=== PATIENT | female | born 1995 | race Hispanic/Latino ===

== ENCOUNTER 2017-04-11 17:13 | Emergency (ER) | payer MEDICAID ==
[2017-04-11 17:13] VITALS: BMI 29.9
[2017-04-11] MEDS ORDERED: RABIES VACCINE 2.5 Units PDR IM ONE (17:24)
[2017-04-11 17:29] VITALS: BP 129/72; PULSE 88; RESP 19; TEMP 98.7; O2SAT 100
--- NOTE | 2017-04-11 18:07 | ED PDOC ---
HPI: Skin/Bite Injury Time Seen by Provider: 04/11/17 17:23 Chief Complaint (Nursing): Rabies Vaccine Series Chief Complaint (Provider): rabies vaccine History Per: Patient History/Exam Limitations: no limitations Additional Complaint(s): 22yo F sustained dog bite by unknown dog with unknown vaccinations series while in [place] 04/08/17 to right forearm and arm, was Rx amoxicillin, but has not filled it. admits to some swelling around area of bite and low grade fever. no drainage from wound. Past Medical History Reviewed: Historical Data, Nursing Documentation, Vital Signs Vital Signs: Last Vital Signs Temp 98.7 F 04/11/17 17:23 Pulse 88 04/11/17 17:23 Resp 19 04/11/17 17:23 BP 129/72 04/11/17 17:23 Pulse Ox 100 04/11/17 17:23 - Medical History PMH: Asthma, HTN, Migraine - Family History Family History: States: Unknown Family Hx - Immunization History Hx Tetanus Toxoid Vaccination: No Hx Influenza Vaccination: No Hx Pneumococcal Vaccination: No - Home Medications Home Medications: Ambulatory Orders Medication Instructions Recorded Acyclovir 500 mg PO DAILY 03/05/16 Albuterol Sulfate 1 puff PO PRN PRN 03/05/16 Nitrofurantoin Macrocrystals 1 cap PO BID #14 cap 03/05/16 [Macrobid] Multivit/Folic Acid/I 1 tab PO DAILY #30 tab 03/05/16 [ Plus] Amoxicillin/Clavulanate [Augmentin 1 tab PO BID #14 tab 04/11/17 875 MG-125 MG] - Allergies Allergies/Adverse Reactions: Allergies Allergy/AdvReac Type Severity Reaction Status Date / Time cat dander Allergy RASH Verified 03/10/16 11:44 shellfish derived Allergy RASH Verified 03/10/16 11:44 shrimp Allergy RASH Verified 03/10/16 11:44 Review of Systems ROS Statement: Except As Marked, All Systems Reviewed And Found Negative Musculoskeletal: Positive for: Arm Pain Physical Exam - Reviewed Nursing Documentation Reviewed: Yes Vital Signs Reviewed: Yes - Physical Exam Appears: Positive for: Well, Non-toxic, No Acute Distress Skin: Positive for: Normal Color, Warm, DRY Cardiovascular/Chest: Positive for: Regular Rate, Rhythm Respiratory: Positive for: CNT, Normal Breath Sounds Extremity: Positive for: Normal ROM, Other (right arm: forearm bursing noted arm bite area noted wound healing no ertyhema no drainage mld swelling. ). Negative for: Tenderness Neurologic/Psych: Positive for: Alert, Oriented - ECG O2 Sat by Pulse Oximetry: 100 - Progress ED Course And Treament: Pt received Vaccination 1st on 04/08/17 Rx will be changes to augmentin. advised to f.u with pmd pt was provided with vaccination schedule. Medical Decision Making Medical Decision Making: f/u with pmd Disposition - Clinical Impression Clinical Impression: Need for rabies vaccination - Patient ED Disposition Is Patient to be Admitted: No Counseled Patient/Family Regarding: Diagnosis, Need For Followup - Disposition Disposition: Routine/Home Disposition Time: 18:10 Condition: STABLE Prescriptions: Amoxicillin/Clavulanate [Augmentin 875 MG-125 MG] 1 tab PO BID #14 tab Instructions: Rabies Vaccine (By injection), Rabies (ED), Rabies Vaccine (ED)
== END 2017-04-11 18:14 | disposition home or self-care (01) ==
LOC: H.ER 17:13
DX: S51.851D Open bite of right forearm, subsequent encounter (principal); W54.0XXA Bitten by dog, initial encounter; Z23 Encounter for immunization